=== PATIENT | female | born 1965 ===

== ENCOUNTER 2017-03-04 09:11 | Emergency (ER) | payer MEDICAID, OTHER ==
[2017-03-04 09:26] VITALS: BMI 34.6
[2017-03-04 09:28] VITALS: RESP 16; TEMP 98
[2017-03-04 10:17] LABS: RBC URINE < 1 /hpf (0-3); URINE BACTERIA RARE (<OCC); URINE BILIRUBIN NEGATIVE (NEGATIVE); URINE BLOOD NEGATIVE (NEGATIVE); URINE GLUCOSE (UA) NORMAL (Normal); URINE KETONE NEGATIVE (NEGATIVE); URINE LEUKOCYTE ESTERASE TRACE Leu/uL (Negative); URINE PROTEIN NEGATIVE (NEGATIVE); URINE UROBILINOGEN NORMAL mg/dL (0.2-1.0)
[2017-03-04 10:28] LABS: URINE COLOR LIGHT YELLOW (YELLOW)
--- NOTE | 2017-03-04 11:34 | C.PDOC ---
History Of Present Illness The patient, a 51 y/o female whose PMHx includes HTN, High Cholesterol, Depression, and Bipolar Disorder, presents to the ED for evaluation of generalized body aches for 2 weeks well as nausea for 3 weeks. Patient states she has a history of a fungal infection underneath her breast, for which she is currently undergoing treatment via clinic. Patient also notes vaginal irritation , cough, and dysuria. Although patient denies headache, sore throat, and chest pain at this time, she states she occasionally experiences the symptoms, respectively. Patient also denies vomiting, diarrhea and abdominal pain. Time Seen by Provider: 03/04/17 09:41 Chief Complaint (Nursing): Female Genitourinary History Per: Patient History/Exam Limitations: no limitations Onset/Duration Of Symptoms: Other (weeks ) Current Symptoms Are (Timing): Still Present Quality Of Discomfort: "Pain" Associated Symptoms: Nausea, Urinary Symptoms (dysuria ), Other (generalized body aches ). denies: Fever, Chills Additional History Per: Patient Past Medical History Reviewed: Historical Data, Nursing Documentation, Vital Signs Vital Signs: Last Vital Signs Temp 98.0 F 03/04/17 09:27 Pulse 62 03/04/17 09:27 Resp 16 03/04/17 09:27 BP 130/88 03/04/17 09:27 Pulse Ox 95 03/04/17 11:42 - Medical History PMH: Hypothyroidism Denies: Chronic Kidney Disease Surgical History: No Surg Hx Family History: States: Unknown Family Hx - Social History Hx Alcohol Use: No Hx Substance Use: No - Immunization History Hx Tetanus Toxoid Vaccination: No Hx Influenza Vaccination: No Hx Pneumococcal Vaccination: No Review Of Systems Except As Marked, All Systems Reviewed And Found Negative. Constitutional: Negative for: Fever, Chills ENT: Negative for: Throat Pain Cardiovascular: Negative for: Chest Pain Respiratory: Positive for: Cough Gastrointestinal: Positive for: Nausea. Negative for: Vomiting, Abdominal Pain , Diarrhea Genitourinary: Positive for: Dysuria, Other (+vaginal irritation ) Musculoskeletal: Positive for: Other (+generalized body aches ) Neurological: Negative for: Headache Physical Exam - Physical Exam Appears: Non-toxic, No Acute Distress Skin: Normal Color, Warm, Dry, Other (+chronic markings under left breast. no signs of active infection ) Head: Atraumatic, Normacephalic Eye(s): bilateral: Normal Inspection, PERRL, EOMI Ear(s): Bilateral: Normal Nose: Normal, No Discharge Oral Mucosa: Moist Neck: Supple Chest: Symmetrical, No Deformity, No Tenderness Cardiovascular: Rhythm Regular, No Murmur Respiratory: Normal Breath Sounds, No Rales, No Rhonchi, No Wheezing Gastrointestinal/Abdominal: Soft, No Tenderness, No Guarding, No Rebound Back: Normal Inspection, No Vertebral Tenderness, No Paraspinal Tenderness Pelvic: Normal External Exam, No Vaginal Discharge Extremity: Normal ROM, Capillary Refill (less than 2 seconds ) Neurological/Psych: Oriented x3, Normal Speech, Normal Cognition Gait: Steady ED Course And Treatment O2 Sat by Pulse Oximetry: 95 (on RA) Pulse Ox Interpretation: Normal Medical Decision Making Medical Decision Making: Impression: 51 y/o female with generalized body aches, nausea Plan: * UA * reassess and disposition Progress Notes: UA ordered and reviewed. Disposition Counseled Patient/Family Regarding: Need For Followup - Disposition Referrals: [facility] [Outside] Disposition: HOME/ ROUTINE Disposition Time: 12:29 Condition: STABLE Prescriptions: Phenazopyridine HCl [Pyridium] 100 mg PO BID #6 tablet Instructions: Dysuria (ED) - POA Present On Arrival: None - Clinical Impression Clinical Impression: Dysuria - Scribe Statement The provider has reviewed the documentation as recorded by the Scribe (Yenifer Hutchins) Provider Attestation: All medical record entries made by the Scribe were at my direction and personally dictated by me. I have reviewed the chart and agree that the record accurately reflects my personal performance of the history, physical exam, medical decision making, and the department course for this patient. I have also personally directed, reviewed, and agree with the discharge instructions and disposition.
[2017-03-04 12:36] VITALS: BP 128/78; PULSE 78; O2SAT 98
== END 2017-03-04 12:35 | disposition home or self-care (01) ==
LOC: C.ER 09:11
DX: R30.0 Dysuria (principal)

== ENCOUNTER 2017-06-16 11:14 | Observation (INO) | payer MEDICAID ==
--- NOTE | 2017-06-16 12:20 | C.PDOC ---
History Of Present Illness Patient is a 52 y/o female, whose PMHx includes HTN, Hypothyroidism, bipolar disorder, and Schizophrenia, presents to the ED for evaluation of chest tightness for the last 5 days. Denies taking any OTC pain medications. Otherwise , denies any shortness of breath, headache, fever, chills cough, nausea, vomiting, diarrhea, diaphoresis, jaw pain, back pain, lower extremity pain/ swelling, or any other associated symptoms at this time. Time Seen by Provider: 06/16/17 11:43 Chief Complaint (Nursing): Chest Pain History Per: Patient History/Exam Limitations: no limitations Onset/Duration Of Symptoms: Days (5) Current Symptoms Are (Timing): Still Present Severity: Mild Quality: Tightness Associated Symptoms: denies: Nausea, Dyspnea, Diaphoresis, Syncope Modifying Factors: None Exacerbating Factors: None Alleviating Factors: None Recent travel outside of the [place]: No Additional History Per: Patient Past Medical History Reviewed: Historical Data, Nursing Documentation, Vital Signs Vital Signs: Last Vital Signs Temp 97.3 F L 06/16/17 11:44 Pulse 51 L 06/16/17 14:08 Resp 16 06/16/17 14:08 BP 134/71 06/16/17 14:08 Pulse Ox 96 06/16/17 14:08 - Medical History PMH: Bipolar Disorder, Depression, HTN, Hypothyroidism, Schizophrenia Denies: Chronic Kidney Disease Family History: States: Unknown Family Hx - Social History Hx Alcohol Use: No Hx Substance Use: No - Immunization History Hx Tetanus Toxoid Vaccination: No Hx Influenza Vaccination: No Hx Pneumococcal Vaccination: No Review Of Systems Except As Marked, All Systems Reviewed And Found Negative. Constitutional: Negative for: Fever, Chills Cardiovascular: Positive for: Chest Pain (tightness). Negative for: Palpitations, Edema, Light Headedness Respiratory: Negative for: Cough, Shortness of Breath, Sputum, Wheezing Gastrointestinal: Negative for: Nausea, Vomiting, Abdominal Pain Skin: Negative for: Rash, Bruising Neurological: Negative for: Headache, Dizziness Physical Exam - Physical Exam Appears: Non-toxic, No Acute Distress Skin: Normal Color, Warm, Dry Head: Atraumatic, Normacephalic Eye(s): bilateral: Normal Inspection Oral Mucosa: Moist Neck: Normal ROM, Supple Chest: Symmetrical, No Tenderness Cardiovascular: Rhythm Regular, No Murmur Respiratory: Normal Breath Sounds, No Rales, No Rhonchi, No Wheezing Gastrointestinal/Abdominal: Soft, No Tenderness Extremity: Normal ROM Neurological/Psych: Oriented x3, Normal Speech, Normal Cognition ED Course And Treatment - Laboratory Results Result Diagrams: 06/16/17 12:29 06/16/17 12:29 ECG: Interpreted By Me ECG Rhythm: Sinus Rhythm ECG Interpretation: No Acute Changes Rate From EC O2 Sat by Pulse Oximetry: 96 (RA) Pulse Ox Interpretation: Normal - Radiology CXR: Interpreted by Me CXR Interpretation: Yes: Cardiomegaly Progress Note: EKG, CXR, blood work ordered and reviewed. On reassessment, pt is resting comfortably, no acute distress. - Physician Consult Information Physician Contacted: Bing Hutchins Outcome Of Conversation: accepted to [facility] for observation, requested cardiology consult with . Disposition - Disposition Disposition: HOSPITALIZED Disposition Time: 13:56 Condition: FAIR - Clinical Impression Clinical Impression: Chest pain - PA / ADMISSIONS RECRUITER / Resident Statement MD/DO has reviewed & agrees with the documentation as recorded. - Scribe Statement The provider has reviewed the documentation as recorded by the Lyn Hutchins All medical record entries made by the [employer] were at my direction and personally dictated by me. I have reviewed the chart and agree that the record accurately reflects my personal performance of the history, physical exam, medical decision making, and the department course for this patient. I have also personally directed, reviewed, and agree with the discharge instructions and disposition. Decision To Admit - Pt Status Changed To: Hospital Disposition Of: Observation - . Bed Request Type: Telemetry Admitting Physician: Bing Hutchins Patient Diagnosis: Chest pain
[2017-06-16 12:36] LABS: BASO % 0.6 % (0.0-2.0); EOS # 0.1 K/uL (0.0-0.7); EOS % 1.6 % (0.0-4.0); HEMATOCRIT 42.6 % (34.0-47.0); LYMPH # 2.6 K/uL (1.0-4.3); LYMPH % 38.4 % (20.0-40.0); MEAN CELL VOLUME 83.2 fL (81.0-99.0); MEAN CORPUSCULAR HEMOGLOBIN 27.7 pg (27.0-31.0); MEAN CORPUSCULAR HGB CONC 33.2 g/dL (33.0-37.0); MEAN PLATELET VOLUME 9.3 fL (7.2-11.7); MONO # 0.6 K/uL (0.0-0.8); MONO % 9.1 % (0.0-10.0); NRBC % 0.1 % (0.0-2.0); WHITE BLOOD COUNT 6.8 K/uL (4.8-10.8)
[2017-06-16 12:45] LABS: CHLORIDE 99 mmol/L (98-107); PARTIAL THROMBOPLASTIN TIME 32 SECONDS (21-34); POTASSIUM 3.3 mmol/L (3.6-5.2); SODIUM 142 mmol/L (132-148)
[2017-06-16 12:47] LABS: BILIRUBIN,TOTAL 0.7 mg/dL (0.2-1.3); GFR AFRICAN-AMERICAN > 60
[2017-06-16 12:48] LABS: ALB/GLOB RATIO 1.1 (1.0-2.1); ALKALINE PHOSPHATASE 77 U/L (38-126); ALT/SGPT 26 U/L (9-52); AST/SGOT 19 U/L (14-36); BLOOD UREA NITROGEN 12 mg/dL (7-17); CALCIUM 9.1 mg/dl (8.6-10.4); CARBON DIOXIDE 29 mmol/L (22-30); GLUCOSE,RANDOM 83 mg/dL (65-105); TOTAL PROTEIN 7.5 g/dL (6.3-8.3)
--- NOTE | 2017-06-16 14:22 | RAD ---
HISTORY: CP, menopause COMPARISON: None available. TECHNIQUE: Chest, one view. FINDINGS: Examination limited by habitus and hypoinflation. LUNGS: No focal consolidation. Please note that chest x-ray has limited sensitivity for the detection of pulmonary masses. PLEURA: No significant pleural effusion identified. No definite pneumothorax . CARDIOVASCULAR: Borderline cardiomegaly, likely magnified by hypoinflation and portable technique. OSSEOUS STRUCTURES: Degenerative changes of the spine. VISUALIZED UPPER ABDOMEN: Elevation of the right hemidiaphragm. OTHER FINDINGS: None. IMPRESSION: Hypoinflation. Borderline cardiomegaly, likely magnified by hypoinflation and portable technique. Correlate clinically.
--- NOTE | 2017-06-16 16:39 | CP.PCM.HP ---
Past Patient History - Infectious Disease Hx of Infectious Diseases: None - Past Medical History & Family History Past Medical History?: Yes - Past Social History Smoking Status: Light Smoker < 10 Cigarettes Daily - CARDIAC Hx Hypertension: Yes - PULMONARY Hx Respiratory Disorders: No - NEUROLOGICAL Hx Neurological Disorder: No - HEENT Hx HEENT Problems: No - RENAL Hx Chronic Kidney Disease: No - ENDOCRINE/METABOLIC Hx Hypothyroidism: Yes - HEMATOLOGICAL/ONCOLOGICAL Hx Blood Disorders: No - INTEGUMENTARY Hx Dermatological Problems: No - MUSCULOSKELETAL/RHEUMATOLOGICAL Hx Musculoskeletal Disorders: No - GASTROINTESTINAL Hx Gastrointestinal Disorders: Yes Hx Ulcer: Yes - GENITOURINARY/GYNECOLOGICAL Hx Genitourinary Disorders: No - PSYCHIATRIC Hx Bipolar Disorder: Yes Hx Depression: Yes Hx Schizophrenia: Yes Hx Substance Use: No - SURGICAL HISTORY Hx Surgeries: Yes Other/Comment: KNEE SURGERY 11/2016 - ANESTHESIA Hx Anesthesia: Yes Hx Anesthesia Reactions: No Meds Allergies/Adverse Reactions: Allergies Allergy/AdvReac Type Severity Reaction Status Date / Time No Known Allergies Allergy Verified 06/16/17 12:06 Physical Exam - Constitutional Appears: Well - Head Exam Head Exam: ATRAUMATIC, NORMAL INSPECTION, NORMOCEPHALIC - Eye Exam Eye Exam: EOMI, Normal appearance, PERRL Pupil Exam: NORMAL ACCOMODATION, PERRL - ENT Exam ENT Exam: Mucous Membranes Moist, Normal Exam - Neck Exam Neck exam: Positive for: Normal Inspection - Respiratory Exam Respiratory Exam: Decreased Breath Sounds - Cardiovascular Exam Cardiovascular Exam: REGULAR RHYTHM, +S1, +S2 - GI/Abdominal Exam GI & Abdominal Exam: Diminished Bowel Sounds, Soft - Rectal Exam Rectal Exam: Deferred Results - Vital Signs Recent Vital Signs: Last Vital Signs Temp 97.3 F L 06/16/17 11:44 Pulse 51 L 06/16/17 14:08 Resp 16 06/16/17 14:08 BP 134/71 06/16/17 14:08 Pulse Ox 96 06/16/17 15:04 - Labs Result Diagrams: 06/16/17 12:29 06/16/17 12:29
[2017-06-16] MEDS ORDERED: Enoxaparin 150 mg Syringe SC STA (17:43)
[2017-06-16] MEDS ORDERED: Enoxaparin 80 mg Syringe ONE (18:06)
--- NOTE | 2017-06-16 22:55 | CP.PCM.CON ---
History of Present Illness - History of Present Illness History of Present Illness: Consultation for evaluation of chest pain HPI : 52-year-old female with past medical history significant for hypertension hypothyroidism presented with complains of chest pain described as sharp pressure-like achy sensation going on for 4-5 days prior to presentation according to the patient she initially pain was subtle and accompanied with nausea and discomfort but she continued to have gradually worsening of the symptoms and therefore came to the ER for further evaluation and treatment she denies having any as any associated shortness of breath.Describes the pain as 7 out of 10 in intensity times the pain is sharp and achy in intensity and character worse with deep inspiration. Also worse with activity. Family history positive for mom having 2 valves repaired in her 70s younger brother had cardiac surgery at a young age for congenital heart disease. Cardiac risk factors are hypertension obesity active smoker smokes 5-6 cigarettes a day. Denies any alcohol or illicit drug use. Review of Systems - Review of Systems All systems: reviewed and no additional remarkable complaints except - Constitutional Constitutional: As Per HPI, Fatigue, Lethargy, Malaise. absent: Anorexia, Chills, Daytime Sleepiness, Excessive Sweating, Fever, Frequent Falls, Headache , Increased Appetite, Night Sweats, Snoring, Sleep Apnea, Weight Gain, Weight Loss, Weakness, Other - EENT Eyes: As Per HPI. absent: Blind Spots, Blurred Vision, Change in Vision, Decreased Night Vision, Diplopia, Discharge, Dry Eye, Exophthalmos, Floaters, Irritation, Itchy Eyes, Loss of Peripheral Vision, Pain, Photophobia, Requires Corrective Lenses, Sees Flashes, Spots in Vision, Tunnel Vision, Other Visual Disturbances, Loss of Vision, Other Ears: As Per HPI. absent: Decreased Hearing, Ear Discharge, Ear Pain, Tinnitus , Abnormal Hearing, Disequilibrium, Dizziness, Other Nose/Mouth/Throat: As Per HPI - Breasts Breasts: As Per HPI - Cardiovascular Cardiovascular: As Per HPI, Chest Pain, Chest Pain at Rest, Lightheadedness. absent: Acrocyanosis, Chest Pain with Activity, Claudication, Diaphoresis, Dyspnea, Dyspnea on Exertion, Edema, Irregular Heart Rhythm, Pain Radiating to Arm/Neck/Jaw, Leg Edema, Leg Ulcers, Orthopnea, Palpitations, Paroxysmal Nocturnal Dyspnea, Pedal Edema, Radiating Pain, Rapid Heart Rate, Slow Heart Rate, Syncope, Other - Respiratory Respiratory: As Per HPI. absent: Cough, Dyspnea, Hemoptysis, Dyspnea on Exertion, Wheezing, Snoring, Stridor, Pain on Inspiration, Chest Congestion, Excessive Mucous Production, Change in Mucous Color, Pain with Coughing, Other - Gastrointestinal Gastrointestinal: As Per HPI, Dyspepsia, Nausea. absent: Abdominal Pain, Belching, Bloating, Change in Bowel Habits, Change in Stool Character, Coffee Ground Emesis, Constipation, Cramping, Diarrhea, Dysphagia, Early Satiety, Excessive Flatus, Fecal Incontinence, Heartburn, Hematemesis, Hematochezia, Loose Stools, Melena, Odynophagia, Temesmus, Vomiting, Other - Genitourinary Genitourinary: As Per HPI. absent: Change in Urinary Stream, Difficulty Urinating, Dysuria, Flank Pain, Hematuria, Pyuria, Nocturia, Urinary Incontinence, Urinary Frequency, Urinary Hesitance, Urinary Urgency, Voiding Freq/Small Amts, Freq UTI, Hx Renal/Bladder Calculi, Hx /Renal Surgery, Bladder Distension, Other - Musculoskeletal Musculoskeletal: As Per HPI. absent: Abnormal Gait, Arthralgias, Atrophy, Back Pain, Deformity, Joint Swelling, Limited Range of Motion, Loss of Height, Muscle Cramps, Muscle Weakness, Myalgias, Neck Pain, Numbness, Radiating Pain into Limb, Stiffness, Tingling, Other - Integumentary Integumentary: As Per HPI. absent: Acne, Alopecia, Bleeding Lesions, Change in Hair, Change in Nails, Change in Pigmentation, Changing Lesions, Dry Skin, Erythema, Furuncle, Hirsutism, Lesions, New Lesions, Non-Healing Lesions, Photosensitivity, Pruritus, Rash, Skin Pain, Skin Ulcer, Sores, Striae, Swelling , Unusual Bruising, Wounds, Jaundice, Other - Neurological Neurological: As Per HPI. absent: Abnormal Gait, Abnormal Hearing, Abnormal Movements, Abnormal Speech, Behavioral Changes, Burning Sensations, Confusion, Convulsions, Disequilibrium, Dizziness, Numbness, Focal Weakness, Frequent Falls , Headaches, Lack of Coordination, Loss of Vision, Memory Loss, Paresthesias, Radicular Pain, Restless Legs, Sensory Deficit, Syncope, Tingling, Tremor, Vertigo, Weakness, Other Visual Disturbances, Other - Psychiatric Psychiatric: As Per HPI. absent: Abnormal Sleep Pattern, Anhedonia, Anxiety, Auditory Hallucinations, Behavioral Changes, Change in Appetite, Change in Libido, Confusion, Depression, Difficulty Concentrating, Hallucinations, Homicidal Ideation, Hopelessness, Irritability, Memory Loss, Mood Swings, Panic Attacks, Paranoia, Suicidal Ideation, Visual Hallucinations, Tactile Hallucinations, Other - Endocrine Endocrine: As Per HPI. absent: Change in Body Appearance, Change in Libido, Cold Intolorance, Deepening of Voice, Excessive Sweating, Fatigue, Flushing, Heat Intolorance, Increase in Ring/Shoe/Hat Size, Palpitations, Polydipsia, Polyphagia, Polyuria, Other - Hematologic/Lymphatic Hematologic: As Per HPI. absent: Easy Bleeding, Easy Bruising, Lymphadenopathy , Other Past Patient History - Infectious Disease Hx of Infectious Diseases: None - Past Medical History & Family History Past Medical History?: Yes - Past Social History Smoking Status: Light Smoker < 10 Cigarettes Daily - CARDIAC Hx Hypertension: Yes - PULMONARY Hx Respiratory Disorders: No - NEUROLOGICAL Hx Neurological Disorder: No - HEENT Hx HEENT Problems: No - RENAL Hx Chronic Kidney Disease: No - ENDOCRINE/METABOLIC Hx Hypothyroidism: Yes - HEMATOLOGICAL/ONCOLOGICAL Hx Blood Disorders: No - INTEGUMENTARY Hx Dermatological Problems: No - MUSCULOSKELETAL/RHEUMATOLOGICAL Hx Musculoskeletal Disorders: No - GASTROINTESTINAL Hx Gastrointestinal Disorders: Yes Hx Ulcer: Yes - GENITOURINARY/GYNECOLOGICAL Hx Genitourinary Disorders: No - PSYCHIATRIC Hx Bipolar Disorder: Yes Hx Depression: Yes Hx Schizophrenia: Yes Hx Substance Use: No - SURGICAL HISTORY Hx Surgeries: Yes Other/Comment: KNEE SURGERY 11/2016 - ANESTHESIA Hx Anesthesia: Yes Hx Anesthesia Reactions: No Meds Allergies/Adverse Reactions: Allergies Allergy/AdvReac Type Severity Reaction Status Date / Time No Known Allergies Allergy Verified 06/16/17 12:06 - Medications Medications: Current Medications Aspirin (Aspirin) 325 mg PO DAILY [facility] Last Admin: 06/16/17 17:05 Dose: 325 mg Enoxaparin Sodium (Lovenox) 40 mg SC DAILY [facility] Hydralazine HCl (Apresoline) 25 mg PO DAILY [facility] Levothyroxine Sodium (Synthroid) 88 mcg PO DAILY@0630 [facility] Olanzapine (Zyprexa) 10 mg PO BID [facility] Last Admin: 06/16/17 18:46 Dose: 10 mg Pantoprazole Sodium (Protonix Ec Tab) 40 mg PO DAILY [facility] Sertraline HCl (Zoloft) 25 mg PO DAILY [facility] Physical Exam - Constitutional Appears: Well - Head Exam Head Exam: ATRAUMATIC, NORMAL INSPECTION, NORMOCEPHALIC - Eye Exam Eye Exam: EOMI, Normal appearance, PERRL Pupil Exam: NORMAL ACCOMODATION, PERRL - ENT Exam ENT Exam: Mucous Membranes Moist, Normal Exam - Neck Exam Neck exam: Positive for: Normal Inspection - Respiratory Exam Respiratory Exam: Clear to Auscultation Bilateral, NORMAL BREATHING PATTERN - Cardiovascular Exam Cardiovascular Exam: REGULAR RHYTHM, RRR, +S1, +S2, Systolic Murmur - GI/Abdominal Exam GI & Abdominal Exam: Normal Bowel Sounds, Soft. absent: Tenderness - Extremities Exam Extremities exam: Positive for: normal inspection - Back Exam Back exam: NORMAL INSPECTION - Neurological Exam Neurological exam: Alert, CN II-XII Intact, Oriented x3, Reflexes Normal - Psychiatric Exam Psychiatric exam: Normal Affect, Normal Mood - Skin Skin Exam: Dry, Intact, Normal Color, Warm Results - Vital Signs Recent Vital Signs: Last Vital Signs Temp 98.1 F 06/16/17 19:30 Pulse 53 L 06/16/17 19:30 Resp 20 06/16/17 19:30 BP 121/74 06/16/17 19:30 Pulse Ox 95 06/16/17 19:30 - Labs Result Diagrams: 06/16/17 12:29 06/16/17 12:29 Labs: Laboratory Results - last 24 hr 06/16/17 21:10 Total Creatine Kinase 58 CK-MB (Mass) < 0.22 Troponin I, Quant < 0.0120 Assessment & Plan (1) Chest pain Assessment and Plan: Etiology of chest pain most likely secondary to costochondritis as patient has reproducible chest wall tenderness but also describes an achy chest discomfort EKG on presentation normal sinus with no acute ST-T wave changes because 2 sets of a cardiac enzymes are normal. I would recommend to continue monitor on telemetry. Check a third set of cardiac enzyme keep the patient on baby aspirin consider NSAIDs for presumptive diagnosis of costochondritis. If ACS has been ruled out she can be safely discharged home and follow outpatient for further evaluation and treatment. Status: Acute (2) HTN (hypertension) Assessment and Plan: Recommend to switch hydralazine to chlorthalidone thiazide monotherapy for high blood pressure. Status: Acute
[2017-06-16 23:47] VITALS: RESP 18; TEMP 97.6
[2017-06-17] MEDS ORDERED: Levothyroxine 88 MCG TAB PO SCH (06:30)
[2017-06-17 09:01] VITALS: BP 118/72; O2SAT 95
[2017-06-17] MEDS ORDERED: Enoxaparin 40 mg Syringe SC SCH (10:00)
[2017-06-17] MEDS ORDERED: Pantoprazole 40 mg EC Tab PO SCH (10:00)
[2017-06-17 11:32] VITALS: PULSE 61
[2017-06-17] MEDS ORDERED: Potassium Chloride 20 mEq ER Tab PO ONE (12:16)
--- NOTE | 2017-06-17 12:16 | CP.PCM.PN ---
Subjective - Date & Time of Evaluation Date of Evaluation: 06/19/17 Time of Evaluation: 13:00 - Subjective Subjective: PGY-[address] Hutchins Patient seen and examined at bedside. No acute events overnight. Patient has no current complaints. Patient state her chest pain has resolved. Patient is aware of her last set of troponin is pending. Patient denies headache, fever, chills, shortness of breath, chest pain, nausea, vomiting, or diarrhea. Objective - Vital Signs/Intake and Output Vital Signs (last 24 hours): Temp Pulse Resp BP Pulse Ox 97.6 F 61 18 118/72 95 06/17/17 08:00 06/17/17 10:00 06/17/17 08:00 06/17/17 08:00 06/17/17 08:00 Intake and Output: 06/17/17 06/17/17 06:59 18:59 Intake Total 240 Balance 240 - Medications Medications: Current Medications Aspirin (Aspirin) 325 mg PO DAILY [facility] Last Admin: 06/17/17 11:14 Dose: 325 mg Enoxaparin Sodium (Lovenox) 40 mg SC DAILY [facility] Last Admin: 06/17/17 11:14 Dose: 40 mg Hydralazine HCl (Apresoline) 25 mg PO DAILY [facility] Last Admin: 06/17/17 11:14 Dose: 25 mg Levothyroxine Sodium (Synthroid) 88 mcg PO DAILY@0630 [facility] Last Admin: 06/17/17 06:20 Dose: 88 mcg Olanzapine (Zyprexa) 10 mg PO BID [facility] Last Admin: 06/17/17 11:14 Dose: 10 mg Pantoprazole Sodium (Protonix Ec Tab) 40 mg PO DAILY [facility] Last Admin: 06/17/17 11:14 Dose: 40 mg Sertraline HCl (Zoloft) 25 mg PO DAILY [facility] Last Admin: 06/17/17 11:14 Dose: 25 mg - Labs Labs: PT 11.7 SECONDS (9.7-12.2) 06/16/17 12:29 INR 1.0 06/16/17 12:29 APTT 32 SECONDS (21-34) 06/16/17 12:29 - Constitutional Appears: Non-toxic, No Acute Distress - Head Exam Head Exam: ATRAUMATIC, NORMAL INSPECTION - Eye Exam Eye Exam: EOMI, Normal appearance - ENT Exam ENT Exam: Mucous Membranes Moist - Neck Exam Neck Exam: Normal Inspection - Respiratory Exam Respiratory Exam: Clear to Ausculation Bilateral, NORMAL BREATHING PATTERN - Cardiovascular Exam Cardiovascular Exam: REGULAR RHYTHM, +S1, +S2. absent: Murmur - GI/Abdominal Exam GI & Abdominal Exam: Soft, Normal Bowel Sounds. absent: Tenderness - Neurological Exam Neurological Exam: Alert, Awake, Oriented x3 - Psychiatric Exam Psychiatric exam: Normal Affect, Normal Mood - Skin Skin Exam: Dry, Intact, Normal Color, Warm Assessment and Plan - Assessment and Plan (Free Text) Assessment: Chest pain -Likely due to costochondritis -Follow cardiology recommendations -No acute ST changes in the EKG -Troponin negative x2 -Patient will be discharged once third troponin is negative -Start daily ASA 81mg Hypertension -Discontinue hydralazine, start chlorthalidone Disposition: home, follow up with PMD and Cardio after discharge Case discussed with Dr. Hutchins
--- NOTE | 2017-06-17 17:51 | CP.PCM.PN ---
Subjective - Date & Time of Evaluation Date of Evaluation: 06/17/17 Time of Evaluation: 09:30 - Subjective Subjective: chest pain mildly improved ACS ruled out Objective - Vital Signs/Intake and Output Vital Signs (last 24 hours): Temp Pulse Resp BP Pulse Ox 97.6 F 61 18 118/72 95 06/17/17 08:00 06/17/17 10:00 06/17/17 08:00 06/17/17 08:00 06/17/17 08:00 Intake and Output: 06/17/17 06/17/17 06:59 18:59 Intake Total 240 480 Balance 240 480 - Labs Labs: PT 11.7 SECONDS (9.7-12.2) 06/16/17 12:29 INR 1.0 06/16/17 12:29 APTT 32 SECONDS (21-34) 06/16/17 12:29 - Constitutional Appears: Well - Head Exam Head Exam: ATRAUMATIC, NORMAL INSPECTION, NORMOCEPHALIC - Eye Exam Eye Exam: EOMI, Normal appearance, PERRL Pupil Exam: NORMAL ACCOMODATION, PERRL - ENT Exam ENT Exam: Mucous Membranes Moist, Normal Exam - Neck Exam Neck Exam: Full ROM, Normal Inspection. absent: Lymphadenopathy - Respiratory Exam Respiratory Exam: Clear to Ausculation Bilateral, NORMAL BREATHING PATTERN - Cardiovascular Exam Cardiovascular Exam: REGULAR RHYTHM, +S1, +S2. absent: Murmur - GI/Abdominal Exam GI & Abdominal Exam: Soft, Normal Bowel Sounds. absent: Tenderness - Extremities Exam Extremities Exam: Full ROM, Normal Capillary Refill, Normal Inspection. absent : Joint Swelling, Pedal Edema - Back Exam Back Exam: NORMAL INSPECTION - Neurological Exam Neurological Exam: Alert, Awake, CN II-XII Intact, Normal Gait, Oriented x3 - Psychiatric Exam Psychiatric exam: Normal Affect, Normal Mood - Skin Skin Exam: Dry, Intact, Normal Color, Warm Assessment and Plan (1) Chest pain Assessment & Plan: 2' to costochondritis stable to dc home outpt f/u Status: Acute (2) HTN (hypertension) Assessment & Plan: change to thiazide with arb for montherapy of HTN Status: Acute
--- NOTE | 2017-06-17 18:04 | CARD ---
APPROVED REPORT EKG Measurement Heart [id number] OR [id number] <Conclusion> Normal sinus rhythm Left anterior fascicular block Abnormal ECG
== END 2017-06-17 16:28 | disposition home or self-care (01) ==
LOC: C.ER 11:14 → C.9E 13:55 → C.5T 18:29
PROVIDERS: ADMIT Internal Medicine Nephrology; ATTEND Internal Medicine Nephrology
DX: R07.89 Other chest pain (principal); E03.9 Hypothyroidism, unspecified; F31.9 Bipolar disorder, unspecified; I10 Essential (primary) hypertension; Z87.891 Personal history of nicotine dependence
CPT/HCPCS: 36415; 71010; 80053; 82550; 82553; 84484; 85025; 85378; 85610; 85730; 93005; 96372; 99285; G0378; J1650